=== PATIENT | male | born 1980 | race Caucasian/White ===

== ENCOUNTER 2021-03-16 03:37 | Emergency (ER) | payer BC ==
[~2021-03-16] VITALS: Ht 188 cm; Wt 109.0 kg
[2021-03-16] MEDS ORDERED: TETRACAINE 0.5% OPHTH SOLUTION 4ML BOTTLE. ONE (03:46)
[2021-03-16] MEDS ORDERED: FLUORESCEIN OPHTH TEST STRIP. ONE ×2 (03:46→03:47)
[2021-03-16] MEDS ORDERED: oxyCODONE IR 5 MG TABLET PO ONE (04:00)
--- NOTE | 2021-03-16 04:04 | PHYS DOC ---
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 Did few hours of welding without a mask. Later in the evening began experiencing severe eye pain. Worse with bright lights. Owns a welding mask, but did not have it with him earlier. Review of Systems: Review of Systems: Constitutional: Denies fever or chills. [] Eyes: Denies change in visual acuity. [] HENT: Reports eye pain and redness Respiratory: Denies cough or shortness of breath. [] Cardiovascular: Denies chest pain or edema. [] GI: Denies abdominal pain, nausea, vomiting, bloody stools or diarrhea. [] : Denies dysuria. [] Musculoskeletal: Denies back pain or joint pain. [] Integument: Denies rash. [] Neurologic: Denies headache, focal weakness or sensory changes. [] Endocrine: Denies polyuria or polydipsia. [] Lymphatic: Denies swollen glands. [] Psychiatric: Denies depression or anxiety. [] Heart Score: C/O Chest Pain: No Risk Factors: Risk Factors: DM, Current or recent (<one month) smoker, HTN, HLP, family history of CAD, obesity. Risk Scores: Score 0 - 3: 2.5% MACE over next 6 weeks - Discharge Home Score 4 - 6: 20.3% MACE over next 6 weeks - Admit for Clinical Observation Score 7 - 10: 72.7% MACE over next 6 weeks - Early Invasive Strategies Current Medications: Current Medications Medications (Trade) Dose Ordered Sig/Kilo Start Time Stop Time Status Last Admin Dose Admin Fluorescein Sodium (Ful-Edna) 1 strip STK-MED ONCE 03/16/21 03:47 03/16/21 03:47 DC Tetracaine HCl (Tetracaine) 40 drop STK-MED ONCE 03/16/21 03:46 03/16/21 03:46 DC Allergies: Allergies: Allergies Coded Allergies Type Severity Reaction Last Updated Verified No Known Drug Allergies 03/16/21 No Physical Exam: PE: Constitutional: Well developed, well nourished, no acute distress, non-toxic appearance. [] HENT: Normocephalic, atraumatic, bilateral external ears normal, oropharynx moist, no oral exudates, nose normal. [] Eyes: PERRLA, EOMI, 20/40 vision OD, 20/60 OS, conjunctive is injected. Diffuse pinpoint fluorescein uptake bilaterally. Neck: Normal range of motion, no tenderness, supple, no stridor. [] Cardiovascular:Heart rate regular rhythm, no murmur [] Skin: Mild blanching redness on face and neck. Back: No tenderness, no CVA tenderness. [] Extremities: No tenderness, no cyanosis, no clubbing, ROM intact, no edema. [] Neurologic: Alert and oriented X 3, normal motor function, normal sensory function, no focal deficits noted. [] Psychologic: Affect normal, judgement normal, mood normal. [] EKG: EKG: [] Radiology/Procedures: Radiology/Procedures: [] Course & Med Decision Making: Course & Med Decision Making Pertinent Labs and Imaging studies reviewed. (See chart for details) 40-year-old male presents with signs/symptoms of UV keratitis after welding without eye protection. Pain resolved with tetracaine examination. Will be discharged with short course of oxycodone, provided with ophthalmology follow-up if his symptoms do not resolve in 1-2 days. Dragon Disclaimer: [employer] Disclaimer: This electronic medical record was generated, in whole or in part, using a voice recognition dictation system. Departure Departure Impression: Primary Impression: UV keratitis Disposition: 01 HOME / SELF CARE / HOMELESS Condition: STABLE Referrals: Porter EDWARDS MD Call for follow-up if your symptoms last more than 2 days Patient Instructions: Eye - Ultraviolet Keratitis, [id number] Additional Instructions: You have what is called the UV keratitis. This typically gets better in 1-2 days. If it does not get better in this timeframe please follow-up with ophthalmology. Call the phone number listed for Dr. Edwards. Please use an antibiotic ointment in your eyes, which should hopefully help with pain to some degree. otherwise: -Tylenol 1000 mg every 6 hours (do not exceed 4000 mg in one day For pain not controlled by the above you can take: -Oxycodone 5 mg every 4 hours as needed. This is a narcotic medication and can make you tired and impaired. Do not drive or operate machinery while taking oxycodone. It can also make you consitpated so please consider taking docusate and miralax (as directed by over the counter directions) to prevent constipation. Please try to take as little oxycodone as possible and wean yourself off as soon as you are able because it is an addictive medication. Scripts Erythromycin Base (Erythromycin) 1 Gm Oint...g. 1 GM OD TID for 3 Days, #1 MISC Prov: MAX PARRA MD 03/16/21 Oxycodone Hcl (OXYCODONE HCL) 5 Mg Capsule 5 MG PO PRN Q6HRS PRN for PAIN for 2 Days, #6 TAB 0 Refills Prov: MAX PARRA MD 03/16/21 MAX PARRA MD Mar 16, 2021 04:04
[2021-03-16] MEDS ORDERED: TETRACAINE 0.5% OPHTH SOLUTION 4ML BOTTLE. OU ONE (04:15)
[2021-03-16] MEDS ORDERED: FLUORESCEIN OPHTH TEST STRIP. OU ONE (04:15)
[2021-03-16] MEDS ORDERED: OXYC5CAP PO (04:31)
[2021-03-16] MEDS ORDERED: ERYT1OIN3 OD (04:31)
[2021-03-16 04:41] VITALS: BP 166/103
== END 2021-03-16 04:49 | disposition home or self-care (01) ==
LOC: ER 03:37
DX: H16.8 Other keratitis (principal)
CPT/HCPCS: 99284